=== PATIENT | male | born 1960 | race African-American/Black ===

== ENCOUNTER 2019-11-30 22:08 | Emergency (ER) | payer OTHER, SELFPAY ==
--- NOTE | ~2019-11-30 | CT_ITS ---
EXAMINATION: CTA chest PE protocol DATE: 11/30/2019 23:22 INDICATION: Shortness of breath. Chest pain. TECHNIQUE: Computed tomography angiography (CTA) of the chest was performed with 100 mL Omnipaque-350 intravenous contrast timed to evaluate the pulmonary arteries. Coronal maximum intensity projection 3D-reconstructions were created by the technologist. Automated exposure control and iterative reconst ruction technique were employed. Exam dose: 361.86 mGy-cm total exam DLP. COMPARISON: None. FINDINGS: There is diagnostic contrast enhancement of the pulmonary arteries and no evidence of pulmo nary embolism There is aortic and great vessel and coronary artery calcification; no thoracic aortic aneurysm or di ssection. Normal heart size. No pericardial or pleural effusion. No enlarged hilar or mediastinal lymph nodes. Prominent bullous emphysema, with bullae most prominent in the right and to a lesser extent left apic al areas. Focal infiltrate, atelectasis or scarring in the posterolateral right lower lobe. The lungs are other jane clear of infiltrate or consolidation. Trace perisplenic fluid. 1.7 cm nonspecific left adrenal nodule. Indeterminate approximately 2.8 x 1.9 cm hypodense lesion of the dome of the liver; consider further evaluation with CT abdomen with intravenous contrast material or MRI examination. Approximately 1 cm probable left hepatic cyst. Old healed right fifth and sixth rib fracture deformities. IMPRESSION: No evidence of pulmonary aneurysm Prominent bullous emphysema Focal infiltrate, atelectasis or scarring in the right lower lobe Indeterminate 2.8 x 1.9 cm hypoattenuating lesion of the dome of the liver; consider further evaluati on with IV contrast material or MR imaging Left hepatic cyst 1.7 cm left adrenal nodule Trace perisplenic fluid Reviewed, dictated and finalized at [facility]. Reviewed, dictated and finalized at [facility]. IMPRESSION: No evidence of pulmonary aneurysm Prominent bullous emphysema Focal infiltrate, atelectasis or scarring in the right lower lobe Indeterminate 2.8 x 1.9 cm hypoattenuating lesion of the dome of the liver; con panel maker further evaluation with IV contrast material or MR imaging Left hepatic cyst 1.7 cm left adrenal nodule Trace perisplenic fluid
[2019-11-30 22:09] VITALS: BP 137/78; PULSE 75; PULSE 98; RESP 16; TEMP 36.4; O2SAT 98
--- NOTE | 2019-11-30 22:10 | ECG_ITS ---
Measurements Intervals [place] Rate: 90 P: 76 OK: 161 QRS: 38 QRSD: 104 T: 58 QT: 367 QTc: 450 Interpretive Statements SINUS RHYTHM BASELINE ARTIFACT- I, II, AVR, AVL, AVF, V1-V6 BORDERLINE ECG Electronically Signed On 12-04-2019 16:29:14 CDT by Sam Frausto D.O.
--- NOTE | 2019-11-30 22:20 | ED.SOB ---
HPI - SOB/Dyspnea General Chief Complaint: Shortness of Breath/Dyspnea Stated Complaint: sob/ cough Time Seen by Provider: 11/30/19 22:22 Source: patient Mode of arrival: EMS Limitations: no limitations History of Present Illness HPI Narrative: The pt is a 59 y/o male who presents to the ED, via EMS, c/o sudden onset SOB onset today. He states that he has a PMHx of COPD, emphysema, and HTN. 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 Pt states that he has a PMHx of cluster GAONA, and notes that he received medication for this yesterday. He notes that he began to experience the GAONA at the same time as his SOB, but notes that this is unusual. Pt reports productive cough for the last few days, as well as rhinorrhea and CP. Pt notes that his rhinorrhea comes with his cluster GAONA. Pt also reports diarrhea and diaphoresis. Pt denies N/V, fever, and chills. Pt notes that he has a PMHx of DVT and PE. He also reports a PSHx of small bowel resection. Pt reports that he does smoke cigarettes, but is trying to cut back. MD elicited complaint: shortness of breath Pertinent past history: COPD Context: recent travel ([place]) Known history of: COPD Associated symptoms: chest pain, cough (Productive, for the last few days) and other (Rhinorrhea (related to cluster GAONA), GAONA (PMHx of cluster GAONA), diaphoresis, diarrhea) Related Data Allergies Allergy/AdvReac Type Severity Reaction Status Date / Time No Known Allergies Allergy Unverified 12/29/17 06:23 Review of Systems Review of Systems: All systems reviewed & are unremarkable except as noted in HPI and below Constitutional: Constitutional: Denies chills, Reports excessive sweating and Denies fever(s) ENT: Reports other (Rhinorrhea (Related to cluster GAONA)) Cardiovascular: Cardiovascular: Reports chest pain Respiratory: Respiratory: Reports cough (Productive, for the last few days) and Reports dyspnea Gastrointestinal: Gastrointestinal: Reports diarrhea, Denies nausea and Denies vomiting Neurologic: Reports headache(s) (PMHx of cluster GAONA) [facility] Past Medical History Medical History (Updated 11/30/19 @ 23:46 by Jignesh Rivera MD) Cluster headache COPD (chronic obstructive pulmonary disease) DVT (deep venous thrombosis) Emphysema lung HTN (hypertension) Pulmonary embolism Surgical History Surgical History (Updated 11/30/19 @ 22:30 by Luan Frances) S/P small bowel resection Social History Social History (Updated 11/30/19 @ 22:33 by Luan Frances) Smoking status: Smoker, status unknown Occupation/Education: occupation Additional occupation/education comments: 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 Gender identity (if verbalized by the patient): Male Comments PCP: 's Administration Exam Narrative: Exam Narrative: GENERAL: Well-appearing, well-nourished, and in no acute distress. HEAD: Normocephalic, atraumatic. ENT: Mucous membranes moist. CHEST: Clear to auscultation. No respiratory distress. HEART: Regular rate and rhythm. Normal peripheral pulses. ABDOMEN: Soft, nontender, nondistended. EXTREMITIES: Normal range of motion. No edema. SKIN: Warm, dry, no rash. NEURO: Alert and oriented x3. Course Course Emergency Course: GAONA resolved with morphine and O2. D/c home. Sx seem to be related to GAONA. Vital Signs Vital signs: Vital Signs Temperature 97.6 F 11/30/19 22:09 Pulse Rate 98 11/30/19 22:09 Respiratory Rate 16 11/30/19 22:09 Blood Pressure 137/78 11/30/19 22:09 Pulse Oximetry 98 11/30/19 22:09 Temperature 97.6 F 11/30/19 22:09 Pulse Rate 98 11/30/19 22:09 Respiratory Rate 16 11/30/19 22:09 Blood Pressure 137/78 11/30/19 22:09 Pulse Oximetry 98 11/30/19 22:09 MDM - SOB/Dyspnea Lab Data Result diagrams: 11/30/19 22:30 11/30/19 22:30 Labs: Lab Results 11/30/19 11/30/19 11/30/19 Range/Units 22:30 22:30 22:30 WBC 7.6 (4.5-10.0)
[2019-11-30 22:35] LABS: Basophils Percent Auto 0.4 % (0.2-1.2); Eosinophils Absolute Auto 0.1 K/mm3 (0-0.3); Eosinophils Percent Auto 1.4 % (0-4.4); Hematocrit 46.1 % (42.0-52.0); Hemoglobin 16.2 g/dL (14.0-18.0); Immature Granulocyte Absolute 0.02 K/mm3 (0.00-0.031); Immature Granulocyte Percent A 0.3 % (0-0.5); Lymphocytes Absolute Auto 2.79 K/mm3 (0.9-3.2); Lymphocytes Percent Auto 36.8 % (18.3-44.2); Mean Corpuscular HGB Conc 35.1 g/dl (32-36); Mean Corpuscular Hemoglobin 32.7 pg (26-34); Mean Corpuscular Volume 92.9 fl (80-100); Monocytes Absolute Auto 0.7 K/mm3 (0.1-0.6); Monocytes Percent Auto 9.1 % (2.6-8.5); Platelet Count Result 310 k/mm3 (150-375); Red Blood Count 4.96 M/mm3 (4.6-6.20); Red Cell Distribution Width 12.4 % (11.5-14.5); White Blood Count 7.6 K/mm3 (4.5-10.0)
[2019-11-30 22:45] LABS: INR 0.9; Prothrombin Time 11.8 Seconds (11.1-14.7)
[2019-11-30 22:46] LABS: Partial Thromboplastin Time 30.3 SECONDS (22.3-36.8)
[2019-11-30 22:52] LABS: Alanine Aminotransferase 20 U/L (4-50); Albumin Level 4.3 g/dL (3.5-5.1); Alkaline Phosphatase 88 U/L (38-126); Aspartate Amino Transferase 31 U/L (17-59); Bilirubin,Total 0.3 mg/dL (0.2-1.3); Blood Urea Nitrogen 10 mg/dL (9-20); Calcium 9.2 mg/dL (8.4-10.2); Carbon Dioxide 23 mmol/L (22-30); Chloride 94 mmol/L (98-107); Estimated Glomerular Filt Rate > 60; Glucose 109 mg/dL (75-110); Potassium 3.7 mmol/L (3.4-5.0); Sodium 130 mmol/L (137-145)
[2019-11-30] MEDS: MORPHINE SULFATE 4 MG/ML INJ IV PUSH (22:58)
[2019-11-30 23:54] VITALS: BP 127/84; PULSE 71; RESP 16; O2SAT 98
== END 2019-11-30 23:55 | disposition home or self-care (01) ==
PROVIDERS: Emergency Provider Emergency Medicine
DX: R51 Headache (principal); R06.00 Dyspnea, unspecified; J43.9 Emphysema, unspecified; I10 Essential (primary) hypertension; Z86.718 Personal history of other venous thrombosis and embolism; Z86.711 Personal history of pulmonary embolism; Z90.49 Acquired absence of other specified parts of digestive tract; K76.9 Liver disease, unspecified; K76.89 Other specified diseases of liver
CPT/HCPCS: 36415; 71275; 80053; 85025; 85610; 85730; 87804; 93005; 96374; 99284; J2270; Q9967